=== PATIENT | female | born 1975 | race Caucasian/White ===

== ENCOUNTER 2018-05-06 13:40 | Emergency (ER) | payer MEDICAID ==
[2018-05-06] MEDS: ACETAMINOPHEN 325 MG TAB PO (16:04)
[2018-05-06 16:07] LABS: URINE BLOOD (Dip) POC 1+ (NEGATIVE); URINE GLUCOSE (Dip) POC Negative (NEGATIVE); URINE KETONES (Dip) POC Negative (NEGATIVE); URINE LEUKOCYTE EST (Dip) POC Negative (NEGATIVE); URINE NITRITE (Dip) POC Negative (NEGATIVE); URINE TOTAL PROTEIN POC Negative (NEGATIVE)
== END 2018-05-06 18:02 | disposition home or self-care (01) ==
LOC: FTE 13:40
DX: S39.92XA Unspecified injury of lower back, initial encounter (principal); E11.9 Type 2 diabetes mellitus without complications; W01.0XXA Fall on same level from slipping, tripping and stumbling without subsequent striking against object, initial encounter; Y92.9 Unspecified place or not applicable; Z79.84 Long term (current) use of oral hypoglycemic drugs
CPT/HCPCS: 71100; 76775; 81003; 81025; 99284-25